=== PATIENT | male | born 1955 | race Two or more races ===

== ENCOUNTER 2020-06-19 11:25 | Outpatient (CLI) | payer MEDICARE, OTHER | END 2020-06-19 23:59 | disposition home or self-care (01) | LOC: MRI 11:25 | PROVIDERS: ATTEND Podiatrist Foot & Ankle Surgery | DX: M84.375A Stress fracture, left foot, initial encounter for fracture (principal); M19.072 Primary osteoarthritis, left ankle and foot; M20.62 Acquired deformities of toe(s), unspecified, left foot; X58.XXXA Exposure to other specified factors, initial encounter; Y93.89 Activity, other specified; Y92.89 Other specified places as the place of occurrence of the external cause; Y99.8 Other external cause status | CPT/HCPCS: 73718-TC ==

== ENCOUNTER 2020-06-23 09:55 | Outpatient (CLI) | payer MEDICARE, OTHER | END 2020-06-23 23:59 | disposition home or self-care (01) | LOC: WOU 09:55 | PROVIDERS: ATTEND Podiatrist Foot & Ankle Surgery | DX: G57.62 Lesion of plantar nerve, left lower limb (principal); S93.525D Sprain of metatarsophalangeal joint of left lesser toe(s), subsequent encounter; X58.XXXD Exposure to other specified factors, subsequent encounter; M20.42 Other hammer toe(s) (acquired), left foot; R60.0 Localized edema; Z87.891 Personal history of nicotine dependence | CPT/HCPCS: G0463 ==

== ENCOUNTER 2020-07-07 10:04 | Outpatient (CLI) | payer MEDICARE, OTHER | END 2020-07-07 23:59 | disposition home or self-care (01) | LOC: WOU 10:04 | PROVIDERS: ATTEND Podiatrist Foot & Ankle Surgery | DX: S93.525D Sprain of metatarsophalangeal joint of left lesser toe(s), subsequent encounter (principal); X58.XXXD Exposure to other specified factors, subsequent encounter; G57.62 Lesion of plantar nerve, left lower limb; M20.42 Other hammer toe(s) (acquired), left foot; R60.0 Localized edema; Z87.891 Personal history of nicotine dependence | CPT/HCPCS: G0463 ==

== ENCOUNTER 2020-07-28 09:56 | Outpatient (CLI) | payer MEDICARE, OTHER | END 2020-07-28 23:59 | disposition home or self-care (01) | LOC: WOU 09:56 | PROVIDERS: ATTEND Podiatrist Foot & Ankle Surgery | DX: S93.525D Sprain of metatarsophalangeal joint of left lesser toe(s), subsequent encounter (principal); X58.XXXD Exposure to other specified factors, subsequent encounter; G57.62 Lesion of plantar nerve, left lower limb; M20.42 Other hammer toe(s) (acquired), left foot; R60.0 Localized edema; M79.672 Pain in left foot | CPT/HCPCS: G0463 ==

== ENCOUNTER 2020-09-11 08:40 | Outpatient (CLI) | payer MEDICARE, OTHER | END 2020-09-11 23:59 | disposition home or self-care (01) | LOC: WOU 08:40 | PROVIDERS: ATTEND Podiatrist Foot & Ankle Surgery | DX: G57.62 Lesion of plantar nerve, left lower limb (principal); S93.525D Sprain of metatarsophalangeal joint of left lesser toe(s), subsequent encounter; X58.XXXD Exposure to other specified factors, subsequent encounter; R60.0 Localized edema; M20.42 Other hammer toe(s) (acquired), left foot | CPT/HCPCS: G0463 ==